=== PATIENT | female | born 1970 | race Hispanic/Latino ===

== ENCOUNTER 2025-02-04 07:55 | Day surgery (SDC) | payer BC ==
[2025-02-01 09:43] LABS: Absolute Lymphocytes (CBC) 2.2 K/uL (0.7-4.9); Hematocrit 38.6 % (36.0-45.0); Hemoglobin 13.3 g/dL (12.0-15.0); MCH 30.1 pg (27.0-35.0); MCHC 34.4 g/dL (32.0-36.0); MCV 87.4 fL (80-100); MPV 6.4 fL (7.6-11.3); Nucleated RBC Absolute Count 0.0 (0-0); Nucleated Red Blood Cells % 0.2 % (0-0); RBC Red Blood Cell Count 4.41 M/uL (3.86-4.86); White Blood Count 6.20 thou/uL (4.3-10.9)
[2025-02-01 09:52] LABS: PT Prothrombin Time 12.0 SECONDS (10-13.0); PTT, Activated Partial Thromb 28.3 SECONDS (27.2-37.4); Protime INR 1.06
[2025-02-01 10:04] LABS: Potassium 3.9 mEq/L (3.5-5.1)
[2025-02-01 10:05] LABS: Anion Gap 7.9 mEq/L (5.0-15.0); BUN Blood Urea Nitrogen 27.0 mg/dL (7-18); Glucose Level 113.0 mg/dL (74-106)
--- NOTE | 2025-02-01 10:31 | RAD REPORT ---
Procedure: Chest Pa And Lat (2 Views) HISTORY: Preop COMPARISON: none FINDINGS: The lungs appear clear of acute infiltrate. No significant pleural effusion noted. The heart is normal size. IMPRESSION: No acute abnormality is displayed.
[2025-02-04] MEDS ORDERED: CEFAZOLIN SODIUM 2 GM/VIAL ONE (08:11)
[2025-02-04] MEDS: Ringers Lactate 1,000 ML IV ONE (08:15)
[2025-02-04] MEDS ORDERED: ONDANSETRON 4 MG/2 ML VIAL ONE ×2 (08:28→08:29)
[2025-02-04] MEDS ORDERED: LIDOCAINE 2% MPF 5 ML VIAL ONE ×2 (08:28→08:29)
[2025-02-04] MEDS ORDERED: FENTANYL CITR 100 MCG/2 ML ONE ×2 (08:28→08:30)
[2025-02-04] MEDS ORDERED: MIDAZOLAM HCL 2 MG/2 ML INJ ONE ×2 (08:28→08:30)
[2025-02-04] MEDS ORDERED: EPHEDRINE SULF 50 MG/ML VIAL ONE (08:55)
[2025-02-04] MEDS: CEFAZOLIN SODIUM 1 GM/VIAL ONE (08:57)
[2025-02-04] MEDS: BUPIVACAINE 0.25% PF 10 ML VIAL ONE (09:18)
--- NOTE | 2025-02-04 09:27 | P.BOP ---
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
--- NOTE | 2025-02-04 09:30 | P.OP ---
Preoperative diagnosis: Left ring finger trigger digit Postoperative diagnosis: Same Primary procedure: Left ring finger A1 yanet release Anesthesia: General Estimated blood loss: 1 cc Specimen: None Findings: See dictation Operative Technique: Reason for Surgery: Uzma is a 54 year old female that presented with a left ring finger trigger digit. Patient failed conservative treatment measures including corticosteroid injection. I discussed with the patient at length risks and benefits associated with the procedure. She expressed understanding and elected to proceed with operative treatment. Description of Procedure: After informed consent was obtained, the patient was identified in the preoperative holding area. The left ring finger was marked. Patient then brought back to the operating room transferred the operative table in supine fashion and placed under anesthesia. The left upper extremity was exsanguinated and the tourniquet was inflated to 250 mmHg. Approximately a 2 cm longitudinal incision over the ring finger A1 yanet. Dissection was then taken down to the A1 yanet using Ragnell retractors. The tendon sheath was identified. It was split in line with the incision. There was significant tenosynovial fluid that was expressed after opening the tendon sheath. The tendon was then brought out through the incision using a Ragnell retractor. There was full excursion of the tendon without triggering noted. The wound was then irrigated thoroughly with normal saline and skin was approximated using a 5-0 Prolene. Sterile dressings were applied and patient was awakened and transferred to PACU in stable condition. Postoperative plan: The patient will follow-up in 1 to 2 weeks for wound check and suture removal. She may begin to work on range of motion exercises at this time. Complications: None Implants: None Fluids & blood products: Per anesthesia record Transferred to: Recovery Room Condition: Good
[2025-02-04 10:55] VITALS: BP 114/74; TEMP 98.5; O2SAT 98
== END 2025-02-04 10:40 | disposition home or self-care (01) ==
LOC: OR 07:55
PROVIDERS: ATTEND Orthopaedic Surgery Sports Medicine
PROC: 0LN80ZZ Release Left Hand Tendon, Open Approach (ICD-10-PCS; principal; 2025-02-04 09:00)
DX: M65.342 Trigger finger, left ring finger (principal)
CPT/HCPCS: 93005; 85025; 80048; 36415; 85610; 85730; 71046; 26055; J2704; J2003; J2250; J3010; J1100; J2405; J7120; J0690